=== PATIENT | female | born 1975 | race Two or more races ===

== ENCOUNTER 2024-10-14 05:35 | Emergency (ER) | payer OTHER ==
[~2024-10-14] VITALS: Ht 157.5 cm; Wt 90.7 kg
[2024-10-14] MEDS ORDERED: AMLODIPINE-BEN1 EAC2 PO (05:43)
[2024-10-14] MEDS ORDERED: ROSUVASTATIN CA10 MG PO (05:43)
[2024-10-14] MEDS ORDERED: PROMETHAZINE HCL 50 MG/ML AMPUL IM STA (06:26)
[2024-10-14] MEDS ORDERED: MEPERIDINE HCL/PF 25 MG/ML VIAL IM STA (06:26)
[2024-10-14] MEDS ORDERED: FAMOTIDINE/PF 20 MG/2 ML VIAL IV PUSH STA (06:26)
[2024-10-14] MEDS ORDERED: FAMOTIDINE/PF 20 MG/2 ML VIAL ONE (06:38)
[2024-10-14] MEDS ORDERED: PROMETHAZINE HCL 50 MG/ML AMPUL IM ONE (06:38)
[2024-10-14 06:53] LABS: HEMATOCRIT 42.8 % (36.0-45.00); HEMOGLOBIN 15.1 g/dL (12.0-15.00); MEAN CELL VOLUME 84.4 fL (80.00-100.00); MEAN CORPUSCULAR HEMOGLOBIN 29.7 pg (27.00-32.0); MEAN CORPUSCULAR HGB CONC 35.2 g/dl (32.0-36.0); PLATELET COUNT 266 K/uL (150-450); RED BLOOD COUNT 5.07 M/uL (4.00-6.00)
[2024-10-14 06:57] LABS: URINE APPEARANCE Clear; URINE BILIRRUBIN Negative (NEGATIVE); URINE BLOOD Negative; URINE COLOR Yellow; URINE GLUCOSE Negative (NEGATIVE); URINE KETONE 15 (NEGATIVE); URINE LEUKOCYTE Negative; URINE NITRATE Negative; URINE PROTEIN 30 (NEGATIVE); URINE UROBILINOGEN 0.2 E.U./dl
[2024-10-14 06:58] LABS: URINE BACTERIA 346.3 uL (0.0-1933); URINE EPITHELIAL CELLS 80.7 uL (0.0-38.8); URINE RBC 13.5 uL (0.0-20.8)
[2024-10-14 07:16] LABS: INR 1.02; PARTIAL THROMBOPLASTIN TIME 33.1 SECONDS (22.0-34.0); PROTHROMBIN TIME 11.1 SECONDS (9.0-11.5)
[2024-10-14 07:35] LABS: ALBUMIN 3.9 gm/dL (3.4-5.0); BILIRUBIN TOTAL 0.75 mg/dL (0.3-1.2); BILIRUBIN,CONJUGATED 0.21 mg/dL (0.0-0.2); BILIRUBIN,UNCONJUGATED 0.54 mg/dL (0.0-0.6); CREATININE SERUM 0.66 mg/dL (0.55-1.02); GFR 94.42; GLOBULINA 3.6 G/DL (2.4-3.5); POTASSIUM 3.89 mEq/L (3.5-5.1); TOTAL PROTEIN 7.5 gm/dL (6.4-8.2)
[2024-10-14] MEDS ORDERED: DIPHENHYDRAMINE HCL 50 MG/ML VIAL 1ML IV ONE (10:00)
[2024-10-14] MEDS ORDERED: METHYLPREDNISOLONE SOD SUCC 40 MG VIAL IV ONE (10:00)
[2024-10-14] MEDS ORDERED: KETOROLAC TROMETHAMINE 60 MG VIAL IM ONE ×2 (10:00→10:11)
[2024-10-14] MEDS ORDERED: DIPHENHYDRAMINE HCL 50 MG/ML VIAL 1ML ONE (10:10)
[2024-10-14] MEDS ORDERED: METHYLPREDNISOLONE SOD SUCC 40 MG VIAL ONE (10:11)
[2024-10-14] MEDS ORDERED: PROBIOTIC1 EAC2 PO (11:44)
[2024-10-14] MEDS ORDERED: KETO10TA2 PO (11:44)
[2024-10-14] MEDS ORDERED: SURFAK240 M1 PO (11:44)
== END 2024-10-14 11:53 | disposition home or self-care (01) ==
LOC: ER 05:35
PROVIDERS: General Practice
DX: R10.11 Right upper quadrant pain (principal); K59.00 Constipation, unspecified; Z91.013 Allergy to seafood; I10 Essential (primary) hypertension; Q44.6 Cystic disease of liver